=== PATIENT | female | born 2000 | race Caucasian/White ===

== ENCOUNTER 2021-09-10 06:32 | Emergency (ER) | payer OTHER, SELFPAY ==
--- NOTE | ~2021-09-10 | US_ITS ---
EXAMINATION: US OBSTETRICAL ULTRASOUND CLINICAL INFORMATION: . Vaginal bleeding. Positive hCG value of 685. COMPARISON: None. LMP: 07/24/2021. Gestational age by maternal dates is 6 weeks and 6 days. Estimated date of delivery by maternal dates is 04/30/2022. TECHNIQUE: Ultrasound of the maternal pelvis is performed using transabdominal and transvaginal transducers. Transvaginal imaging is performed due to inadequate visualization transabdominally. M-mode Doppler is also performed. FINDINGS: Circumscribed oval hypoechogenicity is noted within the endometrial cavity at the fundus of the uterus, measures 0.7 x 1.0 x 0.9 cm. No evidence of any yolk sac or pole. Small volume fluid is present within the endometrial cavity, may represent hemorrhage. The findings may represent very early otherwise normal versus pseudosac or nonviable . MATERNAL ADNEXA: The right maternal ovary measures 2.2 x 1.6 x 1.6 cm. Small volume mildly echogenic fluid is noted at the right adnexa adjacent to the right ovary, may represent hemorrhagic fluid. The left maternal ovary measures 2.8 x 1.7 x 2.3 cm. There is a 1.1 x 1.5 x 1.3 cm hypoechogenicity present, may represent an enlarged hemorrhagic follicle/corpus luteum. There is no significant maternal adnexal mass. No maternal pelvic ascites. US/US OB pelvic and transvaginal IMPRESSION: 1. The uterus shows approximately 1.0 cm maximum dimension circumscribed oval-shaped hypoechogenicity within the endometrial cavity at the fundus without evidence of any yolk sac or pole. The findings may represent early otherwise normal versus of the sac or nonviable . Small volume fluid is also noted within the endometrial cavity, may represent hemorrhage. Follow-up serial serum beta-hCG level as well as follow-up sonographic surveillance as appropriate is recommended for further clarification. 2. Small volume mildly echogenic fluid is noted around the right ovary and adnexal region, may represent hemorrhagic fluid. 3. Probable hemorrhagic follicle/corpus luteum within the left ovary, otherwise unremarkable.
[2021-09-10 06:50] VITALS: BP 113/64; PULSE 74; RESP 20; TEMP 36.5; O2SAT 98; BMI 27.6
--- NOTE | 2021-09-10 07:10 | ED_ITS ---
HPI - General Chief complaint: Abdominal Pain Stated complaint: flank pain Time Seen by Provider: 09/10/21 07:03 Source: patient Mode of arrival: ambulatory Limitations: no limitations History of Present Illness HPI Narrative: Patient comes to emergency room complaining of left lower quadrant pain. Patilawrence nt states that she is known to be . Patient has been going to the clinic to get repeated HCGs. Patient states that the last time she checked it was 3000, patient has been unable to get an appointment with her OBGYN. This morning patient reported having vaginal bleeding, passing blood clots and complaining of left lower quadrant pain for 2-3 days, intermittent, sharp, nonradiating. Patient is known to be at at unknown early gestational age Related Data Allergies Allergy/AdvReac Type Severity Reaction Status Date / Time No Known Allergies Allergy Verified 09/10/21 06:53 Review of Systems Review of Systems: Constitutional : No Weight loss, No Fever, No Chills, No Night Sweats, No Fatigue, No Malaise ENT/Mouth : No Hearing loss, No Ear Pain, No Nasal Congestion, No Sinus Pain, No Hoarseness, No sore throat, No Rhinorrhea, No Swallowing Difficulty Eyes: No Eye Pain, No Swelling, No Redness, No Foreign Body, No Discharge, No Vision Changes Cardiovascular : No Chest Pain, No SOB, No Dyspnea on Exertion, No Orthopnea, No Edema, No Palpitations Respiratory : No Cough, No Sputum, No Wheezing, No Smoke Exposure, No Dyspnea Gastrointestinal : No Nausea, No Vomiting, No Diarrhea, No Constipation, complaining of left lower quadrant pain, No Hematochezia, No Melena Genitourinary : Complaining of vaginal bleeding, passing blood clots, currently . No Dysuria, No Urinary Frequency, No Hematuria, No Urinary Incontinence, No Urgency, No Flank Pain, No Urinary Flow Changes, No Hesitancy Musculoskeletal : No joint pain, No Myalgias, No Joint Swelling Skin : No Skin Lesions, No rash Neuro : No Weakness, No Numbness, No Paresthesias, No Loss of Consciousness, No Dizziness, No Headache Psych : No Anxiety/Panic, No Depression, No SI/HI/AH/VH, No Social Issues, Heme/Lymph: No Bruising, No Bleeding,No Lymphadenopathy Endocrine : No Polyuria, No Polydipsia, No Temperature Intolerance PMFSH Past Medical History Medical History No known health problems Social History Social History Advance Directives: No Advance Directives Information Provided: No Physical Exam Vital Signs: Vital Signs: Last Vital Signs Temp 98.2 F 09/10/21 09:58 Pulse 68 09/10/21 09:58 Resp 18 09/10/21 09:58 BP 100/47 L 09/10/21 09:58 Pulse Ox 100 09/10/21 07:25 BMI result Body Mass Index 27.6 Const: Other: Appearance: Alert. Oriented X3. No acute distress. Eyes: Pupils equal, round and reactive to light. ENT: Pharynx normal. Neck: Normal inspection. Neck supple. No lymph nodes noted. No crepitus CVS: Normal heart rate and rhythm. Pulses normal. Normal S1 and S2 Respiratory: No respiratory distress. Breath sounds normal. No Wheezing. No rales Abdomen: Soft , mild discomfort in the left lower quadrant, No rigidity. No distention. : Normal cervix, there is no vaginal bleeding. Skin: Skin warm and dry. Normal skin color. Normal skin turgor. Extremities: No lower extremity edema. No Lacerations. No Rash Neuro: Oriented X 3. No motor deficit. No sensory deficit. Moving all extremities. No slurred speech. CN 2 through 12 grossly intact Psych: calm, cooperative, normal affect Course Course Course Narrative: Vitals are stable, although labs are pending. Ultrasound has been ordered to rule out ectopic I discussed the labs and imaging with the patient, patient states that several days ago in a lab she was told that her hCG is 700. Today's test than 700. The ultrasound reports that this may be an early versus a nonviable . Discussed the above-mentioned with Dr. Ibarra , patient will follow- up in his office in 2 days, patient was given a form to get LAVON levels before her appointment. Patient was given warning of ectopic and instructions to return to the emergency room. MDM - OB/Uterine Contractions Lab Data Result diagrams: 09/10/21 07:39 09/10/21 07:39 Labs: Lab Results 09/10/21 09/10/21 09/10/21 Range/Units 07:39 07:39 07:39 WBC 9.3 (4.8-10.8) X10*3/uL RBC 4.70 (4.20-5.50) X10*6/uL Hgb 12.5 (12.0-16.0) g/dl Hct 38.3 (37.0-47.0) % MCV 81.5 (80.0-98.0) fL MCH 26.6 L (27.0-33.0) pg MCHC 32.6 (31.0-35.0) g/dl RDW 14.7 (11.0-16.0) % Plt Count 277 (160-400) X10*3/uL MPV 11.2 (9.4-12.3) fL Immature Gran % (Auto) 0.6 H (0.0-0.4) % Neut % (Auto) 71.7 (45-73) % Lymph % (Auto) 21.2 (20-40) % [place] % (Auto) 5.2 (2-11) % Eos % (Auto) 0.9 (0-4) % Baso % (Auto) 0.4 (0-2) % Lymph # (Auto) 2.0 (1.2-4.9) X10*3/uL [place] # (Auto) 0.5 (0.1-1.2) X10*3/uL Eos # (Auto) 0.1 (0.0-0.4) X10*3/uL Baso # (Auto) 0.0 (0.0-0.2) X10*3/uL Abs Immat Gran (auto) 0.06 H (0.00-0.03) X10*3/uL Absolute Neuts (auto) 6.7 (2.0-8.3) x10*3/uL Absolute Nucleated RBC 0.000 (0.0-0.012) X10*3/uL Nucleated RBC % (auto) 0.0 (0.0-0.2) /100WBC Sodium 140 (135-145) mmol/L Potassium 4.2 (3.3-5.1) mmol/L Chloride 108 (96-108) mmol/L Carbon Dioxide 23 (22-29) mmol/L Anion Gap 13 (12-20) BUN 7 L (9-16) mg/dL Creatinine 0.70 (0.5-1.4) mg/dL Estim Creat Clear Calc 128.0 Estimated GFR > 60 Random Glucose 105 (60-115) mg/dL Calcium 9.2 (8.4-10.2) mg/dL Total Bilirubin 0.2 (0.0-1.0) mg/dL Direct Bilirubin < 0.2 (0.0-0.5) mg/dL AST 14 (5-31) U/L ALT 15 (0-31) U/L Alkaline Phosphatase 73 (39-117) U/L Total Protein 6.7 (6.5-8.0) g/dL Albumin 4.2 (3.5-5.0) g/dL Beta HCG, Quant 685 mIU/mL Blood Type O Positive Discharge Plan Discharge Clinical Impression: , threatened Patient Disposition: Home, Self-Care Instructions: Threatened Miscarriage (ED) Additional Instructions: On September 12, you have an appointment with Dr. Stacey Cardenas. Please call to confirm the time. Prior to your appointment, please go to the lab to get your blood drawn/hCG level. If you have any significant abdominal pain, diffuse vaginal bl eeding, any new symptoms, please return to the emergency room. Also, please follow-up with your primary care physician tomorrow. If you have any worsening or new symptoms, please return to the emergency room or call 911. For pain, you may only take Tylenol Referrals: Amandeep Ibarra MD [Physician] - 2 days
[2021-09-10 07:25] VITALS: BP 117/70; PULSE 68; RESP 18; TEMP 37.1; O2SAT 100
[2021-09-10] MEDS: Acetaminophen 325 MG TABLET 975 MG PO (07:31)
[2021-09-10 07:45] LABS: MANUAL DIFF FLAG NO
[2021-09-10 07:46] LABS: Basophils Percent Auto 0.4 % (0-2); Eosinophils Absolute Auto 0.1 X10*3/uL (0.0-0.4); Eosinophils Percent Auto 0.9 % (0-4); Hematocrit 38.3 % (37.0-47.0); Hemoglobin 12.5 g/dl (12.0-16.0); Imm Gran Abs Auto 0.06 X10*3/uL (0.00-0.03); Imm Gran Pct Auto 0.6 % (0.0-0.4); Lymphocytes Percent Auto 21.2 % (20-40); Mean Corpuscular HGB Conc 32.6 g/dl (31.0-35.0); Mean Corpuscular Hemoglobin 26.6 pg (27.0-33.0); Mean Corpuscular Volume 81.5 fL (80.0-98.0); Mean Platelet Volume 11.2 fL (9.4-12.3); Monocytes Absolute Auto 0.5 X10*3/uL (0.1-1.2); Monocytes Percent Auto 5.2 % (2-11); Neutrophils Absolute Auto 6.7 x10*3/uL (2.0-8.3); Neutrophils Percent Auto 71.7 % (45-73); Platelet Count 277 X10*3/uL (160-400); Red Cell Distribution Width 14.7 % (11.0-16.0); White Blood Count 9.3 X10*3/uL (4.8-10.8)
[2021-09-10 08:03] LABS: Alanine Aminotransferase 15 U/L (0-31); Albumin Level 4.2 g/dL (3.5-5.0); Alkaline Phosphatase 73 U/L (39-117); Anion Gap 13 (12-20); Aspartate Amino Transferase 14 U/L (5-31); Bilirubin Direct < 0.2 mg/dL (0.0-0.5); Bilirubin Total 0.2 mg/dL (0.0-1.0); Blood Urea Nitrogen 7 mg/dL (9-16); Calcium 9.2 mg/dL (8.4-10.2); Carbon Dioxide 23 mmol/L (22-29); Chloride 108 mmol/L (96-108); Estimated Glomerular Filt Rate > 60; Glucose Random 105 mg/dL (60-115); Potassium 4.2 mmol/L (3.3-5.1); Sodium 140 mmol/L (135-145); Total Protein 6.7 g/dL (6.5-8.0)
[2021-09-10 08:11] LABS: HCG Quantitative 685 mIU/mL
[2021-09-10 09:58] VITALS: BP 100/47; PULSE 68; RESP 18; TEMP 36.8
--- NOTE | 2021-09-10 10:30 | PM.GYNCN ---
[facility] [facility] - CN: HPI Data of Consult Consult date: 09/10/21 Primary Care Provider: None Physician Consult Narrative Narrative: I was consulted by Dr. Barbosa on Kalpesh Sheth who is a 21 year old female at early with unknown gestational age presented to emergency room complaining of left lower quadrant pain.? The patient is being followed up with repeated HCGs.? According to her last hCG was 3000, patient has been unable to get an appointment with her OBGYN.? This morning patient reported having vaginal bleeding, passing blood clots and complaining of left lower quadrant pain for 2-3 days, intermittent.? In the emergency room Rh positive, hCG is 685 today cc:: CC: [employer] - Review of Systems Review of Systems ROS Unobtainable: All systems reviewed & are unremarkable except as noted in HPI and below Cardiovascular: Denies Palpatations, Loss of consciousness or Chest pain Respiratory: Denies Cough, Wheezing or Shortness of breath Musculoskeletal: Denies Low back pain Gastrointestinal: Denies Heartburn, Constipation, Diarrhea, Nausea or Vomiting Genitourinary: Denies Pain with urination, Burning with urination or Urinary frequency Neurological: Denies Migranes Psychological: Denies Depression OB PMFSH Past Medical History Medical History No known health problems Social History Social History Advance Directives: No Advance Directives Information Provided: No Meds Allergies Allergy/AdvReac Type Severity Reaction Status Date / Time No Known Allergies Allergy Verified 09/10/21 06:53 [employer] [employer] Physical Exam Vitals Vital signs: Temp Pulse Resp BP Pulse Ox 98.2 F 68 18 100/47 L 100 09/10/21 09:58 09/10/21 09:58 09/10/21 09:58 09/10/21 09:58 09/10/21 07:25 BMI result Body Mass Index 27.6 Constitutional General Appearance: Healthy appearing, Well-nourished and Well-developed Psychiatric Mood and Affect: active and alert, normal mood and normal affect Skin Appearance: No rashes and No lesions Lungs Respiratory Effort: No intercostal retractions Auscultation: Clear to auscultation Cardiovascular Auscultation: RRR Abdomen Auscultation/Inspection/Palpation: Normal bowel sounds, Soft, Non-distended and No tenderness Female Genitalia (Pelvic) Exam: Deferred Additional Comments: Physical exam report by Dr. Barbosa is the following: Abdominal exam benign no tenderness guarding or rebound Pelvic exam no vaginal bleeding closed cervix, no uterine and or adnexal tenderness [facility] - Results Labs CBC & Chem 7: 09/10/21 07:39 09/10/21 07:39 Labs: Short CBC 09/10/21 Range/Units 07:39 WBC 9.3 (4.8-10.8) X10*3/uL Hgb 12.5 (12.0-16.0) g/dl Hct 38.3 (37.0-47.0) % Plt Count 277 (160-400) X10*3/uL BMP 09/10/21 07:39 Sodium 140 Potassium 4.2 Chloride 108 Carbon Dioxide 23 BUN 7 L Creatinine 0.70 Calcium 9.2 Liver Function 09/10/21 Range/Units 07:39 Total Bilirubin 0.2 (0.0-1.0) mg/dL Direct Bilirubin < 0.2 (0.0-0.5) mg/dL AST 14 (5-31) U/L ALT 15 (0-31) U/L Alkaline Phosphatase 73 (39-117) U/L Albumin 4.2 (3.5-5.0) g/dL Imaging US - abdomen: Radiologist's impression: ITS Impressions Pelvic/Transvag US 09/10/21 09:40 IMPRESSION: 1. The uterus shows approximately 1.0 cm maximum dimension circumscribed oval-shaped hypoechogenicity within the endometrial cavity at the fundus without evidence of any yolk sac or pole. The findings may represent early otherwise normal versus of the sac or nonviable . Small volume fluid is also noted within the endometrial cavity, may represent hemorrhage. Follow-up serial serum beta-hCG level as well as follow-up sonographic surveillance as appropriate is recommended for further clarification. 2. Small volume mildly echogenic fluid is noted around the right ovary and adnexal region, may represent hemorrhagic fluid. 3. Probable hemorrhagic follicle/corpus luteum within the left ovary, otherwise unremarkable. Assessment and Plan (1) Early stage of : Status: Acute Recommended to Dr. Barbosa the following: The patient is to follow-up with hCG in 48 hours with an appointment our office, SAB/ectopic warnings to be given to patient, she is to call or come back to the emergency room in case of abdominal pain/vaginal bleeding. I was consulted via phone regarding the care of this patient, and I spent a total of 25 minutes reviewing the chart, communicating with the ER provider and documenting the medical record
== END 2021-09-10 11:07 | disposition home or self-care (01) ==
PROVIDERS: Emergency Provider Emergency Medicine
DX: O20.0 Threatened abortion (principal); O26.891 Other specified pregnancy related conditions, first trimester; R10.9 Unspecified abdominal pain; Z3A.01 Less than 8 weeks gestation of pregnancy
CPT/HCPCS: 36415; 76801; 76817; 80048; 80076; 84702; 85025; 86900; 86901; 99284; 99285